=== PATIENT | male | born 1950 | race Caucasian/White ===

== ENCOUNTER 2016-11-18 11:30 | Emergency (ER) ==
[2016-11-18 11:34] VITALS: BP 158/87; TEMP 98; BMI 45.1
--- NOTE | 2016-11-18 12:40 | ED.PDOC ---
General ED Provider: Dr. JARRELL ALMODOVAR JR Chief Complaint: Urinary Problem Stated Complaint: patient states he has increased frenquency and burning with urination. denies any abd. pain. states his penis hurts when he urinates.[ End ]3 days 98.0 75 16 94% 158/87 10/10 states did have intercourse no other known risk factors Time Seen by Physician: 12:40 Mode of Arrival: Walk-In Information Source: Patient Exam Limitations: No limitations [facility] Documentation Reviewed and Agree: No Review of Systems - Review Of Systems Constitutional: Reports: No symptoms Eyes: Reports: No symptoms Ears, Nose, Mouth, Throat: Reports: No symptoms Respiratory: Reports: No symptoms Cardiac: Reports: No symptoms GI: Reports: No symptoms : Reports: Burning, Dysuria (burning urgency dribbling), Incontinence, Urgency Musculoskeletal: Reports: No symptoms Skin: Reports: No symptoms Neurological: Reports: No symptoms Endocrine: Reports: No symptoms Hematologic/Lymphatic: Reports: No symptoms All Other Systems: Other Past Medical History - Past Medical History Previously Healthy: Yes Endocrine: Reports: DM 2, Dyslipidemia Cardiovascular: Reports: CAD, Hypertension, CHF Respiratory: Reports: None Hematological: Reports: None Gastrointestinal: Reports: None Genitourinary: Reports: None Neuro/Psych: Reports: None Musculoskeletal: Reports: None Cancer: Reports: None - Surgical History General Surgical History: Reports: CABG (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), Hernia Repair - Family History Family History: Reports: Unknown - Social History Smoking Status: Never smoker Hx Substance Use: No Alcohol Screening: None Physical Exam - Physical Exam Appearance: Ill-appearing Ill-appearing: Moderate Pain Distress: Moderate GI/: No masses, Tender Psychiatric: Affect appropriate, Mood appropriate Critical Care Note - Critical Care Note Total Time (mins): 0 Course - Course Orders, Labs, Meds: Lab Review 11/18/16 11:53 Urine Color Yellow Urine Clarity Cloudy Urine pH 5.5 Ur Specific [place] 1.020 Urine Protein Trace Urine Glucose (UA) 2+ Urine Ketones Trace Urine Blood 2+ Urine Nitrite Negative Urine Bilirubin Negative Urine Urobilinogen 1.0 Ur Leukocyte Esterase 1+ Urine Microscopic RBC 30-50 Urine Microscopic WBC 50-100 Ur Squamous Epith Cells 2-5 Ur Transition Epith Cell 2-5 Ur Renal Epithelial Cell 2-5 Urine Bacteria Trace Orders Category Date Time Status Bladder [ED BLADDER SCAN] .ONCE EMERGENCY 11/18/16 12:08 Active UA [URINALYSIS C & S IF INDICATED] Stat LAB 11/18/16 11:53 Completed URINE CULTURE Stat LAB 11/18/16 11:53 Received Ciprofloxacin HCl [Cipro] MEDS 11/18/16 13:48 Discontinued 500 mg PO ONCE STA Naproxen [Naprosyn] MEDS 11/18/16 13:51 Discontinued 500 mg PO ONCE STA Medications Discontinued Medications Generic Name Dose Route Start Last Admin Trade Name Freq PRN Reason Stop Dose Admin Ciprofloxacin 500 mg 11/18/16 13:48 Cipro PO 11/18/16 13:49 ONCE STA Naproxen 500 mg 11/18/16 13:51 Naprosyn PO 11/18/16 13:52 ONCE STA Vital Signs: Temp Pulse Resp BP Pulse Ox 11/18/16 11:31 98.0 F 75 16 158/87 H 94 L Departure - Departure Time of Disposition: 13:57 Disposition: HOME SELF-CARE Discharge Problem: Urinary tract infectious disease Instructions: Phenazopyridine (By mouth), Urinary Tract Infection in Men (ED), Dysuria (ED) Condition: Good Pt referred to PMD for follow-up: Yes Additional Instructions: increase fluids antibiotic twice a day follow up PMD two weeks discuss urology evaluation may use pyridium for pain may use naprosyn (aleve) or ibuprofen for pain Prescriptions: Ciprofloxacin HCl [Cipro] 500 mg PO Q12HR #14 tablet Naproxen [Naprosyn] 500 mg PO Q12HR PRN #30 tablet PRN Reason: PAIN Phenazopyridine HCl [Pyridium] 200 mg PO TID PRN #10 tablet PRN Reason: dysuria Allergies/Adverse Reactions: Allergies No Known Allergies Allergy (Verified 11/18/16 11:33) Home Medications: Ambulatory Orders Aspirin/Calcium Carbonate/Mag [Aspirin Buffered 325 Mg Tab] 325 mg PO DAILY Cholecalciferol (Vitamin D3) [Vitamin D] 1,000 unit PO DAILY 04/30/14 Ciprofloxacin HCl [Cipro] 500 mg PO Q12HR #14 tablet 11/18/16 Naproxen [Naprosyn] 500 mg PO Q12HR PRN #30 tablet 11/18/16 Phenazopyridine HCl [Pyridium] 200 mg PO TID PRN #10 tablet 11/18/16
[2016-11-18 13:33] LABS: BILIRUBIN,URINE Negative (NEGATIVE); KETONES,URINE Trace (NEGATIVE); LEUKOCYTE ESTERASE ,URINE 1+ (NEGATIVE); NITRITE,URINE Negative (NEGATIVE); PH,URINE 5.5 (5-9); PROTEIN,URINE Trace (NEGATIVE); URINE, BLOOD 2+ (NEGATIVE)
[2016-11-18 13:43] LABS: ADD URINE MICROSCOPIC YES
[2016-11-18 13:44] LABS: BACTERIA,URINE TRACE (NOT PRESENT)
[2016-11-18] MEDS ORDERED: CIPRO PO STA (13:48)
[2016-11-18] MEDS ORDERED: NAPROSYN PO STA (13:51)
== END 2016-11-18 14:10 | disposition home or self-care (01) ==
LOC: ED 11:30
DX: N39.0 Urinary tract infection, site not specified (principal)
CPT/HCPCS: 81001; 87086; 99283

== ENCOUNTER 2016-12-06 09:36 | Outpatient (CLI) ==
[2016-12-06 13:35] LABS: BASOPHILS % (AUTO) 0.3 % (0.0-3.0); EOSINOPHILS # (AUTO) 0.3 K/ul (0.0-0.7); EOSINOPHILS % (AUTO) 3.4 % (0.0-7.0); HEMATOCRIT 50.5 % (42.0-52.0); HEMOGLOBIN 16.4 g/dl (14.0-18.0); IMMATURE GRANULOCYTE % (AUTO) 0.4 % (0.0-5.0); LYMPHOCYTES # (AUTO) 1.5 K/uL (0.60-3.4); LYMPHOCYTES % (AUTO) 19.5 (10.0-50.0); MEAN CORPUSCULAR HEMOGLOBIN 29.1 pg (27.0-31.0); MEAN CORPUSCULAR HGB CONC 32.5 (31.8-35.4); MEAN CORPUSCULAR VOLUME 89.5 fl (80.0-94.0); MONOCYTES # (AUTO) 0.7 K/uL (0.4-2.0); MONOCYTES % (AUTO) 8.9 (0-10); NEUTROPHILS # (AUTO) 5.3 K/ul (2.0-6.9); NEUTROPHILS % (AUTO) 67.5; PLATELET COUNT 165 10^3/uL (140-440); RED BLOOD COUNT 5.64 10^6/ul (4.70-6.10); WHITE BLOOD COUNT 7.76 K/ul (4.2-10.2)
[2016-12-06 14:09] LABS: ALBUMIN 3.4 g/dL (3.4-5.0); ALBUMIN/GLOBULIN RATIO 1.06; ANION GAP 13.1; BILIRUBIN,TOTAL 0.5 mg/dL (0.00-1.20); BUN/CREATININE RATIO 17.27; CALCIUM 9.4 mg/dL (8.2-10.2); CHOL/HDL RATIO 3.6 (4.5-6.4); CREATININE 1.1 mg/dL (0.60-1.10); POTASSIUM 4.1 mmol/L (3.5-5.1); TOTAL PROTEIN 6.6 g/dL (5.8-8.1)
== END 2016-12-06 09:37 | disposition home or self-care (01) ==
LOC: LAB 09:36
PROVIDERS: ATTEND Emergency Medicine
DX: E78.5 Hyperlipidemia, unspecified (principal); I10 Essential (primary) hypertension; E88.81 Metabolic syndrome and other insulin resistance; E66.9 Obesity, unspecified
CPT/HCPCS: 36415; 80053; 80061; 85025

== ENCOUNTER 2017-04-15 13:05 | Outpatient (CLI) ==
[2017-04-15 13:27] LABS: BASOPHILS % (AUTO) 0.1 % (0.0-3.0); EOSINOPHILS # (AUTO) 0.2 K/ul (0.0-0.7); EOSINOPHILS % (AUTO) 2.6 % (0.0-7.0); HEMATOCRIT 47.8 % (42.0-52.0); HEMOGLOBIN 16.2 g/dl (14.0-18.0); IMMATURE GRANULOCYTE % (AUTO) 0.4 % (0.0-5.0); LYMPHOCYTES # (AUTO) 1.3 K/uL (0.60-3.4); LYMPHOCYTES % (AUTO) 16.5 (10.0-50.0); MEAN CORPUSCULAR HEMOGLOBIN 29.8 pg (27.0-31.0); MEAN CORPUSCULAR HGB CONC 33.9 (31.8-35.4); MEAN CORPUSCULAR VOLUME 87.9 fl (80.0-94.0); MONOCYTES # (AUTO) 0.7 K/uL (0.4-2.0); MONOCYTES % (AUTO) 8.9 (0-10); NEUTROPHILS # (AUTO) 5.7 K/ul (2.0-6.9); NEUTROPHILS % (AUTO) 71.5; PLATELET COUNT 185 10^3/uL (140-440); RED BLOOD COUNT 5.44 10^6/ul (4.70-6.10); WHITE BLOOD COUNT 8.01 K/ul (4.2-10.2)
[2017-04-15 14:26] LABS: ALBUMIN 3.4 g/dL (3.4-5.0); ALBUMIN/GLOBULIN RATIO 0.76; ANION GAP 15.8; BILIRUBIN,TOTAL 0.59 mg/dL (0.00-1.20); BUN/CREATININE RATIO 15.26; CALCIUM 9.3 mg/dL (8.2-10.2); CHOL/HDL RATIO 3.9 (4.5-6.4); CREATININE 1.31 mg/dL (0.60-1.10); POTASSIUM 5.8 mmol/L (3.5-5.1); TOTAL PROTEIN 7.9 g/dL (5.8-8.1)
== END 2017-04-15 13:06 | disposition home or self-care (01) ==
LOC: LAB 13:05
PROVIDERS: ATTEND Emergency Medicine
DX: E11.9 Type 2 diabetes mellitus without complications (principal); E88.81 Metabolic syndrome and other insulin resistance; I10 Essential (primary) hypertension; E78.5 Hyperlipidemia, unspecified
CPT/HCPCS: 36415; 80053; 80061; 83036; 84443; 85025

== ENCOUNTER 2017-10-05 12:38 | Outpatient (CLI) | END 2017-10-05 12:39 | disposition home or self-care (01) | LOC: LAB 12:38 | PROVIDERS: ATTEND Emergency Medicine | DX: E78.5 Hyperlipidemia, unspecified (principal); I10 Essential (primary) hypertension; E11.9 Type 2 diabetes mellitus without complications | CPT/HCPCS: 36415; 80053; 80061; 83036; 84443; 85025 ==

== ENCOUNTER 2018-03-13 09:30 | Outpatient (CLI) | END 2018-03-13 09:31 | disposition home or self-care (01) | LOC: RHC-LAB 09:30 | PROVIDERS: ATTEND Emergency Medicine | DX: E11.9 Type 2 diabetes mellitus without complications (principal); E78.5 Hyperlipidemia, unspecified; I10 Essential (primary) hypertension; E88.81 Metabolic syndrome and other insulin resistance | CPT/HCPCS: 36415; 80053; 80061; 83036; 84443; 85025 ==

== ENCOUNTER 2018-05-12 12:04 | Outpatient (CLI) | payer OTHER | END 2018-05-12 12:05 | disposition home or self-care (01) | LOC: FCC-LAB 12:04 | PROVIDERS: ATTEND Nurse Practitioner Family | DX: E88.81 Metabolic syndrome and other insulin resistance (principal) | CPT/HCPCS: 36415; 83037 ==

== ENCOUNTER 2018-06-06 10:18 | Outpatient (CLI) | END 2018-06-06 10:19 | disposition home or self-care (01) | LOC: RHC-LAB 10:18 | PROVIDERS: ATTEND Nurse Practitioner Family | DX: E87.6 Hypokalemia (principal); I10 Essential (primary) hypertension | CPT/HCPCS: 36415; 80048 ==

== ENCOUNTER 2019-02-01 09:24 | Outpatient (CLI) | payer OTHER | END 2019-02-01 09:25 | disposition home or self-care (01) | LOC: RHC-LAB 09:24 → FCC-LAB 09:25 | PROVIDERS: ATTEND Family Medicine | DX: I49.9 Cardiac arrhythmia, unspecified (principal); E78.5 Hyperlipidemia, unspecified; I10 Essential (primary) hypertension; E11.9 Type 2 diabetes mellitus without complications | CPT/HCPCS: 36415; 80053; 80061; 83037; 85025; 93005; 93010 ==

== ENCOUNTER 2019-02-16 06:04 | Outpatient (CLI) ==
--- NOTE | 2019-02-16 07:57 | ECHO2D ---
Date of Exam: 02/16/2019 Ordering Physician: DR. MACKAY Room #: OP Reason for Echo: PERIPHERAL EDEMA, SHORTNESS OF BREATH, HISTORY OF CORONARY ARTERY BYPASS GRAFT M-Mode Normal Adult Results LV Dimensions Normal Adult Results AoV Opening excursions >1.6 >1.6 LVEDD-base- 3.5-5.8 5.2 Ao root dimensions 2.0-3.7 3.6 LVESD-base- 3.1-4.6 L. Atrium dimensions 1.9-3.8 5.8 Post. Wall thickness 0.8-1.1 1.3 IV septum (thickness) 0.7-1.2 1.3 Post. Wall excursion 0.72-1.3 NORMAL Septal motion 0.2 Systolic motion R. Ventricular cavity 1.5-2.0 NORMAL LVEF 60% 45% Paradoxical septal wall motion NORMAL 2-D : MARKEDLY ENLARGED LEFT ATRIAL CAVITY, HYPOKINETIC SEPTUM, VALVES NORMAL, NO EFFUSION, NO THROMBUS, NORMAL LEFT VENTRICLE SIZE M-MODE: MV: NORMAL AV: NORMAL TV: NORMAL PV: CHAMBER SIZE: ENLARGED LEFT ATRIAL CAVITY WALL MOTION: HYPOKINETIC SEPTUM PERICARDIUM: NORMAL INTERPRETATION: 1. LEFT VENTRICULAR HYPERTROPHY WITH MARKEDLY ENLARGED LEFT ATRIAL CAVITY (5.8CM ) 2. HYPOKINETIC SEPTUM, LEFT VENTRICULAR EJECTION FRACTION 45% 3. NORMAL VALVES 4. NORMAL LEFT VENTRICLE SIZE MTDD
== END 2019-02-16 06:05 | disposition home or self-care (01) ==
LOC: CAR 06:04
PROVIDERS: ATTEND Family Medicine
DX: R60.9 Edema, unspecified (principal); R06.02 Shortness of breath